=== PATIENT | male | born 1985 | race Caucasian/White ===

== ENCOUNTER → 2016-06-21 | Outpatient (CLI) | payer OTHER ==
--- NOTE | 2016-06-21 12:46 | KCIC ---
CHEST, TWO VIEWS, 06/21/2016: History: Cough, pneumonia The heart size and pulmonary vascularity are normal. No pulmonary infiltrates are seen. There is no evidence of pleural fluid. Impression: No acute cardiopulmonary abnormality is detected. Electronically signed by: Brian Goodwin MD (Jun 21, 2016 12:45:01)
== END | disposition home or self-care (01) ==
LOC: KCIC 11:32
PROVIDERS: ATTEND Family Medicine
DX: R05 Cough (principal); Z87.01 Personal history of pneumonia (recurrent)
CPT/HCPCS: 71020